=== PATIENT | female | born 1955 | race Caucasian/White ===

== ENCOUNTER → 2016-10-12 | Outpatient (CLI) | payer BC ==
--- NOTE | 2016-10-12 12:48 | RAD ---
DATE: 10/12/2016 EXAM: MAMMO PRACHI SCREENING BILATERAL HISTORY: Routine screening COMPARISON: 08/17/2013, 08/18/2014 This study was interpreted with the benefit of Computerized Aided Detection (CAD). FINDINGS: 2-D and 3-D tomosynthesis imaging was performed in CC and MLO projections. There are scattered fibroglandular densities in the breasts. No new or enlarging breast densities are seen. Benign type calcifications are present. No suspicious microcalcifications have developed. IMPRESSION: Stable mammograms without evidence of malignancy. BI-RADS CATEGORY: 2 BENIGN FINDING(S) RECOMMENDED FOLLOW-UP: 12M 12 MONTH FOLLOW-UP PQRS compliance statement: Patient information was entered into a reminder system with a target due date for the next mammogram. Mammography is a sensitive method for finding small breast cancers, but it does not detect them all and is not a substitute for careful clinical examination. A negative mammogram does not negate a clinically suspicious finding and should not result in delay in biopsying a clinically suspicious abnormality. "Our facility is accredited by the [employer] Mammography [employer]."
== END | disposition home or self-care (01) ==
LOC: MAMMO 07:54
PROVIDERS: ATTEND Obstetrics & Gynecology
DX: Z12.31 Encounter for screening mammogram for malignant neoplasm of breast (principal)
CPT/HCPCS: 77063; G0202; 77067

== ENCOUNTER → 2017-11-16 | Outpatient (CLI) | payer BC ==
--- NOTE | 2017-11-17 11:13 | RAD ---
EXAM: MAMMO PRACHI SCREENING BILATERAL. HISTORY: Screening. COMPARISON: October 12, 2016, June 17, 2015, June 16, 2014. FINDINGS: 2-D and 3-D tomosynthesis mammograms were obtained of both breasts in the CC and MLO projections. Computer-aided detection (CAD) was utilized. The breast parenchyma shows scattered fibroglandular densities. Breast parenchyma level B. No dominant suspicious mass, suspicious microcalcifications, or architectural distortion is identified. IMPRESSION: No evidence of malignancy. BI-RADS CATEGORY: 1 NEGATIVE RECOMMENDED FOLLOW-UP: 12M 12 MONTH FOLLOW-UP PQRS compliance statement: Patient information was entered into a reminder system with a target due date for the next mammogram. Mammography is a sensitive method for finding small breast cancers, but it does not detect them all and is not a substitute for careful clinical examination. A negative mammogram does not negate a clinically suspicious finding and should not result in delay in biopsying a clinically suspicious abnormality. "Our facility is accredited by the [employer] Mammography [employer]."
== END | disposition home or self-care (01) ==
LOC: MAMMO 15:09
PROVIDERS: ATTEND Family Medicine
DX: Z12.31 Encounter for screening mammogram for malignant neoplasm of breast (principal)
CPT/HCPCS: 77063; 77067

== ENCOUNTER → 2019-01-28 | Outpatient (CLI) | payer BC ==
--- NOTE | 2019-01-30 10:27 | RAD ---
DATE: 01/28/2019 EXAM: MAMMO PRACHI SCREENING BILATERAL HISTORY: Routine screening COMPARISON: 06/17/2015, 10/12/2016, 11/16/2017 mammographic exams This study was interpreted with the benefit of Computerized Aided Detection (CAD). Breast Density: SCATTERED The breast parenchyma shows scattered fibroglandular densities. Breast parenchyma level B. FINDINGS: Small masses are present and stable primarily involving the left breast. No suspicious calcification or distortion. No dominant mass. IMPRESSION: Stable BI-RADS CATEGORY: 2 BENIGN FINDING(S) RECOMMENDED FOLLOW-UP: 12M 12 MONTH FOLLOW-UP PQRS compliance statement: Patient information was entered into a reminder system with a target due date in one year for the next mammogram. Mammography is a sensitive method for finding small breast cancers, but it does not detect them all and is not a substitute for careful clinical examination. A negative mammogram does not negate a clinically suspicious finding and should not result in delay in biopsying a clinically suspicious abnormality. "Our facility is accredited by the [employer] Mammography [employer]."
== END | disposition home or self-care (01) ==
LOC: MAMMO 14:48
PROVIDERS: ATTEND Family Medicine
DX: Z12.31 Encounter for screening mammogram for malignant neoplasm of breast (principal)
CPT/HCPCS: 77063; 77067

== ENCOUNTER → 2020-03-13 | Outpatient (CLI) | payer BC ==
--- NOTE | 2020-03-18 17:32 | RAD ---
BILATERAL SCREENING MAMMOGRAM, 3-D History: Routine screening. Comparison: 01/28/2019, 11/16/2017, 10/12/2016, 06/17/2015. Technique: MLO and CC digital tomosynthesis (3D) images obtained. Radiologist reviewed these images on dedicated workstation. Findings: Breast Tissue Density B : There are scattered areas of fibroglandular density. There are no dominant masses, suspicious microcalcifications, or architectural distortion. IMPRESSION: No mammographic evidence of malignancy. Recommend routine screening. BI-RADS category 1: Negative. The images were reviewed with computer-aided detection. Patient information is entered into reminder system with a target due date for the next screening mammogram. Mammography is the most sensitive method for finding small breast cancers, but it does not detect them all and is not a substitute for careful clinical examination. A negative mammogram does not negate a clinically suspicious finding and should not result in delay in biopsying a clinically suspicious abnormality. "Our facility is accredited by the [employer] Mammography [employer]." Electronically signed by: Karan Quinn MD (03/18/2020 5:29 PM) [id number]
== END ==
LOC: MAMMO 15:10
PROVIDERS: ATTEND Family Medicine
DX: Z12.31 Encounter for screening mammogram for malignant neoplasm of breast (principal)
CPT/HCPCS: 77063; 77067

== ENCOUNTER → 2021-03-19 | Outpatient (CLI) | payer BC ==
--- NOTE | 2021-03-19 16:27 | RAD ---
MG BILAT SCREEN+PRACHI 03/19/2021 9:59 AM INDICATION: Asymptomatic screening mammogram. COMPARISON: 03/13/2020, 01/28/2019 TECHNIQUE: 3D tomosynthesis was performed in CC and MLO projections. 2D views were obtained from the 3D data. CAD was utilized as needed. FINDINGS: Breast density: Category B: There are scattered areas of fibroglandular density. Right breast: There are no suspicious microcalcifications, masses or areas of architectural distortio n. Left breast: There are no suspicious microcalcifications, masses or areas of architectural distortion . Bilateral mammogram is compared to prior examinations appears unchanged. IMPRESSION: Negative bilateral mammogram. BI-RADS category: 1; Negative Recommendations: Recommend annual screening mammography in one year. Electronically signed by: Lilly Garner MD (03/19/2021 4:24 PM) [email or web address]
== END ==
LOC: MAMMO 08:50
PROVIDERS: ATTEND Family Medicine
DX: Z12.31 Encounter for screening mammogram for malignant neoplasm of breast (principal)
CPT/HCPCS: 77063; 77067